=== PATIENT | female | born 1965 | race Caucasian/White ===

== ENCOUNTER 2018-04-20 11:53 | Day surgery (SDC) | payer OTHER ==
[2018-04-06 12:05] VITALS: BMI 27.4
[2018-04-20] MEDS ORDERED: SODIUM CHLORIDE 0.9% P/F 10 ML VIAL IJ ONE (13:56)
[2018-04-20] MEDS ORDERED: TRIAMCINOLONE ACET 40MG/1ML VIAL ONE (13:56)
[2018-04-20] MEDS ORDERED: LIDOCAINE 1% P/F 10 MG/ML VIAL ONE (13:56)
[2018-04-20] MEDS ORDERED: BUPIVACAINE HCL/PF 2.5 MG/ML - 30 ML VIAL IJ ONE (14:14)
[2018-04-20 14:39] VITALS: TEMP 98
[2018-04-20 15:41] VITALS: BP 114/68; PULSE 69
--- NOTE | 2018-04-21 06:05 | OP ---
DATE OF OPERATION: 04/20/2018 PROCEDURE PERFORMED: Cervical Epidural Steroid Injection. DIAGNOSIS/INDICATION: Upper extremity radiculopathy. CONSENT: The procedure was explained and all questions answered. Risks discussed include bleeding, allergy, infection, and inadvertent puncture of the dura. Informed, written consent was obtained. VACCINE MANAGER: Adams Shin MD TECHNIQUE: The patient was prepped and draped in the usual sterile fashion. Using fluoroscopic guidance, the C5-C6 interspinous space was localized, and the overlying skin and subcutaneous soft tissues were locally anesthetized with 1% Lidocaine. A 20-gauge epidural needle was advanced into the epidural space using [id number] technique. Epidurogram was performed using 5 mL Omnipaque contrast injected into the epidural space to verify needle tip position and to visualize epidural space and nerve root in AP and lateral views. Contrast spread was seen. A lateral spot radiograph was obtained. Depo-Medrol of 40 mg and 2 mL normal saline were injected into the epidural space and the needle was removed. The procedure was well tolerated. There were no immediate complications. Nonionic contrast was used because of the possibility of intrathecal administration. POSTOPERATIVE DIAGNOSIS: Cervical epidural steroid injection for cervical radiculopathy. ADAMS SHIN M.D. [id number]
== END 2018-04-20 15:46 | disposition home or self-care (01) ==
LOC: FASU 11:53
PROVIDERS: ATTEND Pain Medicine Interventional Pain Medicine
PROC: B01BYZZ Fluoroscopy of Spinal Cord using Other Contrast (ICD-10-PCS; 2018-04-20)
PROC: 3E0R33Z Introduction of Anti-inflammatory into Spinal Canal, Percutaneous Approach (ICD-10-PCS; principal; 2018-04-20 14:21)
DX: M54.12 Radiculopathy, cervical region (principal)
CPT/HCPCS: 72100-TC-FY; 84703